=== PATIENT | female | born 2005 | race Caucasian/White ===

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

== ENCOUNTER 2023-06-11 13:03 | Emergency (ER) | payer MEDICAID, SELFPAY ==
[2023-06-11] VITALS (21 sets, daily range): BP systolic 98–116; BP diastolic 65–71; PULSE 94–113; RESP 18–25; TEMP 36.7–37.2; O2SAT 98–100
--- NOTE | 2023-06-11 13:00 | RT.EKG_ITS ---
APPROVED REPORT Exam: Resting ECG Reason for Exam: chest pain Patient Location: E HR:111 bpm ECG Measurements Heart Rate 111 AXIS LA 121 P 59 QRSd 82 QRS -29 QT 334 T 32 QTc 455 Conclusion Sinus tachycardia normal axis no significant change from prior
--- NOTE | 2023-06-11 14:03 | W.ED.GENAD ---
Discharge Plan Disposition Patient Disposition: Home Condition: Stable Discharge Details Clinical Impression: Shortness of breath Primary Care Provider: Romana Valdez ED Provider: Akilah Doty Home Meds and New Rx's Prescriptions: Continued sertraline 100 mg Tablet 100 mg PO DAILY hydroxyzine HCl 25 mg Tablet 75 mg PO TID PRN duloxetine 30 mg capsule,delayed release(DR/EC) 30 mg PO DAILY Patient Comments: TAKE 1 CAPSULE BY MOUTH ONCE DAILY, DO NOT CRUSH OR CHEW cholecalciferol (vitamin D3) 1,250 mcg (50,000 unit) capsule 50,000 unit PO ONCE Patient Comments: TAKE 1 CAPSULE BY MOUTH ONCE A WEEK WITH FOOD L norgest/e.estradiol-e.estrad [Ashlyna] 0.15 mg-30 mcg (84)/10 mcg (7) tablets,dose pack,3 month See Rx Instructions .ROUTE .COMPLEX Rx Instructions: take 1 tablet daily following the order on blister card(s) estradiol 1 mg tablet 1 mg PO DAILY Patient Comments: TAKE 1 TABLET BY MOUTH ONCE DAILY Discharge Instructions Instructions: Dyspnea (ED) Additional Instructions: Please use your albuterol inhaler every 2-4 hours 1 or 2 puffs with the spacer as directed. At this time no evidence of obvious large blood clot in your lungs no pneumonia. This is a preliminary result and a radiologist will also look at it if there is any changes we will call you. Follow up with primary care provider in 3-5 days. Return to ED sooner if any worsening or concerns. Increase oral fluids. Referrals: Romana Valdez [Primary Care Provider] - 1 week Samantha Zarate MD [ [facility] STAFF PHYSICIAN] - 5 days Discharge Data Discharge Date/Time-TO BE ENTERED AT DEPARTURE: 06/11/23 17:36 Medical Decision Making <TANA Draper - Last Filed: 06/12/23 15:48> 17-year-old female reporting shortness of breath and chest pain, D-dimer 559, discussed risk benefit of CT, patient would like to have CT performed, given tachycardia, shortness of breath and recent 3-week initiation of estrogen, will order CTA, patient will be signed out to Irish Doty pending CTA, lungs clear to auscultation, sinus tachycardia, EKG without acute abnormality, troponin negative and diagnostic labs do not show acute abnormality Patient is alert and oriented, cranial nerves II through XII intact, able to follow all basic neurological commands, lungs clear to auscultation, appears anxious No reproducible Chest wall pain, EKG per ED attending physician's documentation and my review does not show evidence of acute abnormality aside from sinus tachycardia CTA chest was ordered for further evaluation as D-dimer positive Remain on telemetry monitoring throughout this encounter without visible evidence of dysrhythmia negative Troponin and diagnostic labs do not show significant acute abnormality SJ: 1605: Care assumed from provider (TANA Draper) Please see their initial HPI, PE, and documentation. Discussed patient details and case and pending workup and disposition. Patient is hemodynamically stable, and alert and oriented. At the time of signout awaiting CTA of chest, COVID swab added onto labs. Patient is a 17-year-old female with a chief complaint of shortness of breath which is worsening for last 5 days and chest pain with associated vomiting. D-dimer slightly elevated. He does show some motion artifact however no large pulmonary embolism noted findings are noted below. Discussed CT results with patient and family verbalized understanding. We will give a spacer prior to patient being discharged. I will give her referral for the on-call PCP provider as patient has not been able to get a hold of her PCP. Discussed strict return instructions and home care. This text was generated using [employer] dictation system, please disregard any oddities of phrase or misspellings. <Akilah Doty, [employer] THER[employer]IST - Last Filed: 06/11/23 18:14> 17-year-old female reporting shortness of breath and chest pain, D-dimer 559, discussed risk benefit of CT, patient would like to have CT performed, given tachycardia, shortness of breath and recent 3-week initiation of estrogen, will order CTA, patient will be signed out to Irish Doty pending CTA, lungs clear to auscultation, sinus tachycardia, EKG without acute abnormality, troponin negative and diagnostic labs do not show acute abnormality SJ: 1605: Care assumed from provider (TANA Draper) Please see their initial HPI, PE, and documentation. Discussed patient details and case and pending workup and disposition. Patient is hemodynamically stable, and alert and oriented. At the time of signout awaiting CTA of chest, COVID swab added onto labs. Patient is a 17-year-old female with a chief complaint of shortness of breath which is worsening for last 5 days and chest pain with associated vomiting. D-dimer slightly elevated. He does show some motion artifact however no large pulmonary embolism noted findings are noted below. Discussed CT results with patient and family verbalized understanding. We will give a spacer prior to patient being discharged. I will give her referral for the on-call PCP provider as patient has not been able to get a hold of her PCP. Discussed strict return instructions and home care. This text was generated using [employer] system, please disregard any oddities of phrase or misspellings. Medical Records Medical records reviewed: Yes I reviewed the patient's medical records. Imaging Data Radiologic Study: Imaging: CT Scan Radiologist's impression: [facility] CT result: COMPARISON: CR XR CHEST 2V PA LATERAL 10/03/2022 20:14 FINDINGS: Limitations: Respiratory motion artifact. Pulmonary arteries: No large central pulmonary embolus involving the main pulmonary artery in the right and left pulmonary artery. Motion artifact degrades image quality of the peripheral vessels however there is no gross pulmonary embolus. Aorta: Unremarkable. No aortic aneurysm. No aortic dissection. Trachea: . Mild proximal tracheal malacia. Lungs: Low lung volumes. Pleural spaces: Unremarkable. No pneumothorax. No pleural effusion. Heart: Unremarkable. No cardiomegaly. No pericardial effusion. Lymph nodes: Unremarkable. No enlarged lymph nodes. Diaphragm: Hiatal hernia. Liver: Hepatic steatosis. Preliminary Radiology Report Stomach and bowel: Fluid distended stomach. Bones/joints: Unremarkable for age. No acute fracture. Soft tissues: Unremarkable. IMPRESSION: 1. No evidence for large pulmonary embolus. Limitations as discussed above. 2. Mild proximal tracheal malacia. 3. Hypoventilation. 4. Additional findings as discussed above. Thank you for allowing us to participate in the care of your patient. Dictated and Authenticated by: Cyn Washington MD Lab Data Lab results reviewed: Yes I reviewed the patient's lab results. Labs: Laboratory Tests Range/Units 06/11/23 06/11/23 13:57 16:03 WBC (4.4-10.8) 10^3/uL 10.98 H RBC (3.93-5.22) 10^6/uL 4.53 Hgb (11.2-15.7) g/dL 12.9 Hct (36.0-46.0) % 38.4 MCV (80-95) fL 85 MCH (27.0-33.0) pg 28.5 MCHC (32.0-36.0) % 33.6 RDW (11.7-14.6) % 13.1 Plt Count (130-400) 10^3/uL 377 MPV (8.0-11.0) fL 10.5 Immature Gran % 0.5 Neutrophils % 67.2 Lymphocytes % 23.7 Monocytes % 7.3 Eosinophils % 1.0 Basophils % 0.3 Nucleated RBC % (0.0-0.3) % 0.0 Absolute Neutrophils (1.2-6.7) 10^3/uL 7.38 H Absolute Lymphocytes (1.2-3.4) 10^3/uL 2.60 Absolute Monocytes (0.1-0.8) 10^3/uL 0.80 Absolute Eosinophils (0.0-0.7) 10^3/uL 0.11 Absolute Basophils (0.0-0.2) 10^3/uL 0.03 D-Dimer (<500) ng/mlFEU 559 H Sodium (136-145) mmol/L 138 Potassium (3.5-5.1) mmol/L 3.4 L Chloride (98-107) mmol/L 104 Carbon Dioxide (21.0-32.0) mmol/L 23.1 Anion Gap (3-11) mmol/L 10.9 BUN (7-18) mg/dL 8 Creatinine (0.55-1.02) mg/dL 0.8 Est GFR (CKD-EPI 2020) (mL/min/1.73m2) 108.78 Glucose (74-106) mg/dL 131 H Calcium (8.5-10.1) mg/dL 8.9 Magnesium (1.8-2.4) mg/dL 2.1 Total Bilirubin (0.2-1.0) mg/dL 0.1 L AST (15-37) U/L 22 ALT (14-59) U/L 22 Alkaline Phosphatase (46-116) U/L 71 Troponin I (<or=60) ng/L < 50 Total Protein (6.4-8.2) g/dL 7.6 Albumin (3.4-5.0) g/dL 3.4 COVID-19 Source Nasal/Nares SARS-CoV-2 (PCR) (Negative) Negative HPI <TANA Draper - Last Filed: 06/12/23 15:48> General Date/Time Provider Initiated Documentation: 06/11/23 13:12. HPI Narrative: This 17-year-old female presents with reports of chest pain and shortness of breath which started approximately 5 days ago. She had an episode of syncope which she thinks precipitated the event. She denies any history of hypertension or hyperlipidemia. There is no known family history of early cardiac disease. Patient does not smoke, drink, or use any illicit drugs. She denies any chance of . Patient has had some swelling in her lower extremities without pain. Denies any history of coagulopathy. Did just recently start on oral exogenous estrogen after being on Depo-Provera. Has had similar symptoms in the past approximately a year ago where she had full evaluation at [facility]. Related Data Home Medications Medication Instructions Recorded Confirmed hydroxyzine HCl 25 mg tablet 75 mg PO TID PRN 03/10/22 06/11/23 sertraline 100 mg tablet 100 mg PO DAILY 03/10/22 06/11/23 L norgest/E estradiol-E estrad See Rx Instructions PO .COMPLEX 06/11/23 06/11/23 0.15 mg-30 mcg (84)/10 mcg(7) tabs,3mos (Ashlyna) cholecalciferol (vitamin D3) 1,250 50,000 unit PO ONCE 06/11/23 06/11/23 mcg (50,000 unit) capsule duloxetine 30 mg capsule,delayed 30 mg PO DAILY 06/11/23 06/11/23 release estradiol 1 mg tablet 1 mg PO DAILY 06/11/23 06/11/23 Allergies Allergy/AdvReac Type Severity Reaction Status Date / Time No Known Allergies Allergy Unverified 06/11/23 14:14 General Stated Complaint: Chest Pain KARLY: 3 PFSH <TANA Draper - Last Filed: 06/12/23 15:48> All Active Problems (Updated 06/11/23 @ 15:48 by TANA Draper) Shortness of breath (Acute) Social History Smoking/Tobacco Use Status: Never Smoking risk assessment performed?: Yes Alcohol Intake: never Drug use: Never Substance use type: does not use Do you feel safe at home: Yes Do you feel safe in your relationship?: Yes Course <TANA Draper - Last Filed: 06/12/23 15:48> Vital Signs Vital signs: Vital Signs Temperature 36.7 C 06/11/23 13:08 Pulse 110 H 06/11/23 13:08 Respiratory Rate 20 06/11/23 13:08 Blood Pressure 116/71 06/11/23 13:08 Pulse Oximetry 98 06/11/23 13:08 Temperature 36.7 C 06/11/23 13:08 Temperature Source Temporal Artery Scan 06/11/23 13:08 Pulse 110 H 06/11/23 13:08 Respiratory Rate 20 06/11/23 13:08 Blood Pressure 116/71 06/11/23 13:08 Blood Pressure Position Sitting 06/11/23 13:08 Pulse Oximetry 98 06/11/23 13:08 Oxygen Delivery Method Room Air 06/11/23 13:08 Oxygen Flow Rate 0 06/11/23 13:08 Lab/Test Results Lab/Test Results: POC- Test(urine) Negative Sign Out <TANA Draper - Last Filed: 06/12/23 15:48> Sign Out Data: Sign Out Comment: pending cta Last updated by Elisabeth Lr PA at 06/11/23 15:43
[2023-06-11 14:09] LABS: Abs Immature Grans 0.05 10^3/uL (0.0-0.06); Absolute Basophil Count 0.03 10^3/uL (0.0-0.2); Absolute Eosinophil Count 0.11 10^3/uL (0.0-0.7); Basophils % 0.3; HCT 38.4 % (36.0-46.0); HGB 12.9 g/dL (11.2-15.7); Immature Grans % 0.5; Lymphocytes % 23.7; MCH 28.5 pg (27.0-33.0); MCHC 33.6 % (32.0-36.0); MCV 85 fL (80-95); MPV 10.5 fL (8.0-11.0); Monocytes % 7.3; Neutrophils % 67.2; Platelet Count 377 10^3/uL (130-400); RBC 4.53 10^6/uL (3.93-5.22); RDW 13.1 % (11.7-14.6); RDW-SD 40.8 fL; WBC 10.98 10^3/uL (4.4-10.8)
[2023-06-11 14:15] LABS: Absolute Neutrophil Count 7.38 10^3/uL (1.2-6.7)
[2023-06-11] MEDS: Lactated Ringers 1,000 ML 1000 ML IV (14:21)
[2023-06-11] MEDS: ACETAMINOPHEN 1,000 MG/100 ML BTL 400 MG IVPB (14:22)
[2023-06-11 14:33] LABS: ALT 22 U/L (14-59); AST 22 U/L (15-37); Albumin 3.4 g/dL (3.4-5.0); Alkaline Phosphatase 71 U/L (46-116); Anion Gap 10.9 mmol/L (3-11); BUN 8 mg/dL (7-18); Bilirubin, Total 0.1 mg/dL (0.2-1.0); CO2 23.1 mmol/L (21.0-32.0); CREATININE 0.8 mg/dL (0.55-1.02); Calcium 8.9 mg/dL (8.5-10.1); Chloride 104 mmol/L (98-107); Estimated GFR 108.78 (mL/min/1.73m2); Glucose 131 mg/dL (74-106); Magnesium 2.1 mg/dL (1.8-2.4); Potassium 3.4 mmol/L (3.5-5.1); Sodium 138 mmol/L (136-145); Total Protein 7.6 g/dL (6.4-8.2); Troponin I < 50 ng/L (<or=60)
[2023-06-11 14:43] LABS: D-Dimer 559 ng/mlFEU (<500)
--- NOTE | 2023-06-11 14:45 | DI.CT_ITS ---
Exam(s) CT CHEST PE CTA EXAM: CT CHEST PE CTA CLINICAL HISTORY: chest pain, shortness of breath, tachycardia. TECHNIQUE: Imaging Protocol: Axial CT angiography was performed with multi-slice acquisition and mu lti-planar reconstructions as well as axial, coronal and sagittal MIP reconstructions. CONTRAST MATERIAL: Intravenous: Omnipaque 350 Contrast volume:80 ml COMPARISON: No exams were available for comparison FINDINGS: Exam mildly limited by respiratory motion. Pulmonary Arteries: No evidence of filling defect to suggest pulmonary emboli. Tracheobronchial tree: Patent where visualized. Mediastinum and Janet: No dominant adenopathy or fluid collection. Pulmonary parenchyma: No consolidation or dominant measurable mass. Pleura: No effusion or pneumothorax. Heart: The heart is not dilated. No coronary artery calcifications are seen. Aorta: Thoracic aorta non-dilated. No aneurysm. No dissection. Upper abdomen: Unremarkable. Bones: Mild scoliosis. No evidence of fracture. Tubes, Catheters, and Lines: None IMPRESSION: No evidence of pulmonary embolism or other acute abnormality.. RADIATION DOSE DELIVERED: Total DLP DATA REPOSITORY: All CT scans at this facility are submitted to the National Radiology Data Registry (NRDR) Dose Index Registry (DIR) with the [employer] (ACR). RADIATION OPTIMIZATION: All CT scans at this facility use at least one of these dose optimization te chniques: automated exposure control; mA and/or kV adjustment per patient size (includes targeted exa ms where dose is matched to clinical indication); or iterative reconstruction.
[2023-06-11] MEDS: Omnipaque 350 MG/ML 100 ML BTL IJ (15:21)
[2023-06-11] MEDS: Normal Saline - Diluent 50 ML VIAL IJ (15:27)
[2023-06-11 16:08] LABS: Source Nasal/Nares
--- NOTE | 2023-06-11 16:21 | DI.VRAD_ITS ---
PROCEDURE INFORMATION: Exam: CTA Chest With Contrast Exam date and time: 06/11/2023 3:19 PM Age: 17 years old Clinical indication: Shortness of breath and other: Chest pain, SOB, tachy TECHNIQUE: Imaging protocol: Computed tomographic angiography of the chest with contrast. Exam focused on the arteries. 3D rendering (Not supervised by radiologist): MIP and/or 3D reconstructed images were created by the technologist. Contrast material: 350; Contrast volume: 100 ml; Contrast route: INTRAVENOUS (IV); COMPARISON: CR XR CHEST 2V PA LATERAL 10/03/2022 20:14 FINDINGS: Limitations: Respiratory motion artifact. Pulmonary arteries: No large central pulmonary embolus involving the main pulmonary artery in the right and left pulmonary artery. Motion artifact degrades image quality of the peripheral vessels however there is no gross pulmonary embolus. Aorta: Unremarkable. No aortic aneurysm. No aortic dissection. Trachea: . Mild proximal tracheal malacia. Lungs: Low lung volumes. Pleural spaces: Unremarkable. No pneumothorax. No pleural effusion. Heart: Unremarkable. No cardiomegaly. No pericardial effusion. Lymph nodes: Unremarkable. No enlarged lymph nodes. Diaphragm: Hiatal hernia. Liver: Hepatic steatosis. Stomach and bowel: Fluid distended stomach. Bones/joints: Unremarkable for age. No acute fracture. Soft tissues: Unremarkable. IMPRESSION: 1. No evidence for large pulmonary embolus. Limitations as discussed above. 2. Mild proximal tracheal malacia. 3. Hypoventilation. 4. Additional findings as discussed above. Dictated and Authenticated by: Cyn Washington MD. Ordering:MURALI Barber MD
[2023-06-11 16:37] LABS: COVID-19 PCR Negative (Negative)
[2023-06-11] MEDS: Inhaler, Assist Device 1 EACH MC (17:00)
== END 2023-06-11 17:36 | disposition home or self-care (01) ==
PROVIDERS: Physician Assistant; Emergency Provider Registered Nurse Emergency; PCP Nurse Practitioner Family
DX: R07.9 Chest pain, unspecified (principal); R06.02 Shortness of breath; R00.0 Tachycardia, unspecified; R79.89 Other specified abnormal findings of blood chemistry
CPT/HCPCS: 71275; 80053; 81025; 87635; 93005; 96361; 96374; 99285; 83735; 84484; 85025; 85379; 93010; J0131; J3490

== ENCOUNTER 2023-06-14 08:32 | Emergency (ER) | payer MEDICAID, SELFPAY ==
[2023-06-14 08:35] VITALS: BP 127/85; PULSE 100; RESP 22; TEMP 36.9; O2SAT 98
[2023-06-14 08:42] VITALS: BP 125/87; PULSE 100; RESP 20; TEMP 36.9; O2SAT 100
--- NOTE | 2023-06-14 08:54 | ED.GENADUL_ITS ---
Discharge Plan Disposition Patient Disposition: Home Condition: Good Discharge Details Clinical Impression: Pharyngitis Primary Care Provider: Romana Valdez ED Provider: Elias Magana Home Meds and New Rx's Prescriptions: New amoxicillin-pot clavulanate 875-125 mg tablet 1 tab PO BID 10 Days Qty: 20 0RF ondansetron 4 mg tablet,disintegrating 4 mg PO Q8H PRN (Reason: nausea and vomiting) Qty: 30 0RF Continued sertraline 100 mg Tablet 100 mg PO DAILY hydroxyzine HCl 25 mg Tablet 75 mg PO TID PRN duloxetine 30 mg capsule,delayed release(DR/EC) 30 mg PO DAILY Patient Comments: TAKE 1 CAPSULE BY MOUTH ONCE DAILY, DO NOT CRUSH OR CHEW cholecalciferol (vitamin D3) 1,250 mcg (50,000 unit) capsule 50,000 unit PO ONCE Patient Comments: TAKE 1 CAPSULE BY MOUTH ONCE A WEEK WITH FOOD L norgest/e.estradiol-e.estrad [Ashlyna] 0.15 mg-30 mcg (84)/10 mcg (7) tablets,dose pack,3 month See Rx Instructions .ROUTE .COMPLEX Rx Instructions: take 1 tablet daily following the order on blister card(s) estradiol 1 mg tablet 1 mg PO DAILY Patient Comments: TAKE 1 TABLET BY MOUTH ONCE DAILY Discharge Instructions Instructions: Amoxicillin/Clavulanate Potassium (By mouth), Ondansetron (By mouth), Pharyngitis (ED) Additional Instructions: You were seen in the emergency department for your sore throat and continued shortness of breath. This is possibly a viral syndrome and we did send out a respiratory panel swab that should be back in a number of days, please check with the hospital or your primary care provider for results of this are on your MyChart. Otherwise you have some right tonsillar swelling and we can treat with antibiotics for an empiric pharyngitis. We provided you with Tylenol and an NSAID today as well as a one-time dose of dexamethasone a steroid that should help with any inflammation. You do not have to use your albuterol inhaler every 2 hours, you can use this as needed for shortness of breath. I have provided yo u with PO dissolving tablets of ondansetron which will help with nausea- take this as needed 3 times per day 20-30 minutes before meals. Please use therapeutic dosing of Tylenol (acetamenophen) & Advil (ibuprofen) in an alternating fashion as follows: Take 1000mg of Tylenol every 6 hours without missing doses- that is 4 times per day. [place] in between the Tylenol dosings, take 400-600mg of Advil also on a 6 hour schedule, that is also 4 times per day. The daily maximum dosing of Tylenol is 4000mg, and the daily maximum dosing of Advil is 2400mg. This is safe to do for weeks. Please note that some common cold medications & prescription pain medications may contain acetamenophen and you need to read OTC drug labels and factor that in to maximum daily dosings. Use tea with honey for symptomatic sore throat, perform salt water gargles to ease irritation. Apply gentle heat to your area of rib pain as this is likely musculoskeletal in nature need to get the muscle to relax. The Tylenol and ibuprofen will help with this as well. Please return to the emergency department for any significant increase in shortness of breath, any increasing fever despite adequate dosing of Tylenol and ibuprofen. Return for any intractable nausea or vomiting. Referrals: Romana Valdez [Primary Care Provider] - Discharge Data Discharge Date/Time-TO BE ENTERED AT DEPARTURE: 06/14/23 10:06 Medical Decision Making <TANA Barry - Last Filed: 06/14/23 10:33> This dictation utilizes [id number] dictation software and may contain unedited grammatical errors. 17 y/o F presents to ED today with a chief complaint of shortness of breath, chills, sore throat, and pleuritic CP with asthma, recent negative CTA, negative Covid-19 at a visit 3 days ago to this ED. Onset and characteristics include almost a weeks worth of sore throat symptoms without trismus/hoars eness/drooling, shortness of breath in the setting of chronic asthma, and chest discomfort. Patient has relevant history of OCP use, asthma. Family and social history: noncontributory. Patient and mother had confusion over tracheal malacia vRAD read at last visit, normal radiology overread. Pertinent exam findings / vital signs include lungs CTA, mild R tonsillar swelling without trismus/vocal changes, TTP L lower sternocostal junction, nontoxic vitals- HR upper limit of normal at 100- but patient has been using albuterol q2hr for days, no acute distress. HR 94, patient comfortably playing o n phone at discharge, observed on monitor. Differential / pathologies of concern include pharyngitis, tonsillitis, viral syndrome, mild asthma exacerbation, unlikely peritonsillar abscess. Diagnostic studies of: -Respiratory Panel PCR (send-out), Rapid Strep swab. -Rapid Strep negative, Cx pending @ d/c. Interventions of: -PO Tylenol & Toradol, PO Dexamethasone one-time dose. ED Course: Stable vitals throughout visit, patient and mother were comfortable with discharge after plan had been discussed with, no decompensation. Findings not consistent with BRIGHT CUTTER/epiglottitis, PNA/PE (ruled-out last visit), hypoxemic respiratory failure, patient more than likely has a viral syndrome or pharyngitis with subjective shortness of breath. Disposition of Pharyngitis. Assessment/Plan: 17-year-old female presents with almost a weeks onset of sore throat with mild shortness of breath in the setting of chronic asthma. She has pleuritic chest pain suspicious for costochondritis as well as a sore throat as her most focal symptom. She received a negative CTA and negative COVID test at last visit with her recent exposure to estrogen OCPs. Spent significant time counseling the patient on normal over read of her study and not tracheal malacia of a mild degree is not tracheal collapse, I spent considerable time talking about therapeutic Tylenol and ibuprofen use and to follow with primary care visit. Plan to treat her pharyngitis empirically with antibiotics- Augmentin, sent to [facility] in [place] for mild right tonsillar swelling without gross suspicion for peritonsillar abscess, her respiratory panel PCR send out test is pending at this time, she may discontinue antibiotics if this study comes back positive for a common viral illness. Patient was seen in conjunction with EM Attending Dr. Arana. Patient verbalized understanding of the plan and return to ED criteria and engaged in shared decision making. Medical Records Medical records reviewed: Yes I reviewed the patient's medical records. Lab Data Labs: 06/14/23 09:05 Tonsil - Not Specified Group A Streptococcus Culture - Pending <Raj Arana MD - Last Filed: 06/14/23 13:54> This dictation utilizes [id number] dictation software and may contain unedited grammatical errors. 17 y/o F presents to ED today with a chief complaint of shortness of breath, chills, sore throat, and pleuritic CP with asthma, recent negative CTA, negative Covid-19 at a visit 3 days ago to this ED. Onset and characteristics include almost a weeks worth of sore throat symptoms without trismus/hoarseness/drooling, shortness of breath in the setting of chronic asthma, and chest discomfort. Patient has relevant history of OCP use, asthma. Family and social history: noncontributory. Patient and mother had confusion over tracheal malacia vRAD read at last visit, normal radiology overread. Pertinent exam findings / vital signs include lungs CTA, mild R tonsillar swelling without trismus/vocal changes, TTP L lower sternocostal junction, nontoxic vitals- HR upper limit of normal at 100- but patient has been using albuterol q2hr for days, no acute distress. HR 94, patient comfortably playing on phone at discharge, observed on monitor. Differential / pathologies of concern include pharyngitis, tonsillitis, viral syndrome, mild asthma exacerbation, unlikely peritonsillar abscess. Diagnostic studies of: -Respiratory Panel PCR (send-out), Rapid Strep swab. -Rapid Strep negative, Cx pending @ d/c. Interventions of: -PO Tylenol & Toradol, PO Dexamethasone one-time dose. ED Course: Stable vitals throughout visit, patient and mother were comfortable with discharge after plan had been discussed with, no decompensation. Findings not consistent with BRIGHT CUTTER/epiglottitis, PNA/PE (ruled-out last visit), hypoxemic respiratory failure, patient more than likely has a viral syndrome or pharyngitis with subjective shortness of breath. Disposition of Pharyngitis. Assessment/Plan: 17-year-old female presents with almost a weeks onset of sore throat with mild shortness of breath in the setting of chronic asthma. She has pleuritic chest pain suspicious for costochondritis as well as a sore throat as her most focal symptom. She received a negative CTA and negative COVID test at last visit with her recent exposure to estrogen OCPs. Spent significant time counseling the patient on normal over read of her study and not tracheal malacia of a mild degree is not tracheal collapse, I spent considerable time talking about therapeutic Tylenol and ibuprofen use and to follow with primary care visit. Plan to treat her pharyngitis empirically with antibiotics- Augmentin, sent to [facility] in [place] for mild right tonsillar swelling without gross suspicion for peritonsillar abscess, her respiratory panel PCR send out test is pending at this time, she may discontinue antibiotics if this study comes back positive for a common viral illness. Patient was seen in conjunction with EM Attending Dr. Arana. Patient verbalized understanding of the plan and return to ED criteria and engaged in shared decision making. 1:54 PM I saw this patient in conjunction with the advanced practitioner. Please see my separate note for details. Dr. Raj Arana MD HPI <TANA Barry - Last Filed: 06/14/23 10:33> General Date/Time Provider Initiated Documentation: 06/14/23 08:34 . HPI Narrative: 17 year-old female presents to ED today by POV/ambulating with her mother with a chief complaint of continued shortness of breath after recent visit 06/11 with negative CTA with onset for the past week almost. Quality described as shortness of breath, having to breathe through her mouth, sternal sharp pleuritic chest pain, sore throat, no radiation to syncope, dizziness, diaphoresis, endorses chills/fever, endorses some nausea/vomiting. Severity is described as 6-7/10. Palliating factors include using her at-home albuterol inhaler every 2-4 hours without relief, does have chronic asthma. Provoking factors include coughing. Events leading up to the incident/Associated Symptoms: Patient was negative for Covid-19 at last visit, and had recent initiation of estrogen OCPs. Patient and mother were concerned with a vRAD read they were counseled on that showed mild tracheal malacia, which was read as normal on overread- they stated they were told she had a collapsed trachea. Patient not anticoagulated. Related Data Home Medications Medication Instructions Recorded Confirmed hydroxyzine HCl 25 mg tablet 75 mg PO TID PRN 03/10/22 06/14/23 sertraline 100 mg tablet 100 mg PO DAILY 03/10/22 06/14/23 L norgest/E estradiol-E estrad See Rx Instructions PO .COMPLEX 06/11/23 06/14/23 0.15 mg-30 mcg (84)/10 mcg(7) tabs,3mos (Ashlyna) cholecalciferol (vitamin D3) 1,250 50,000 unit PO ONCE 06/11/23 06/14/23 mcg (50,000 unit) capsule duloxetine 30 mg capsule,delayed 30 mg PO DAILY 06/11/23 06/14/23 release estradiol 1 mg tablet 1 mg PO DAILY 06/11/23 06/14/23 amoxicillin 875 mg-potassium 1 tab PO BID pharyngitis 10 days 06/14/23 clavulanate 125 mg tablet #20 tabs ondansetron 4 mg disintegrating 4 mg PO Q8H PRN nausea and 06/14/23 tablet vomiting #30 tabs Previous Rx's Medication Instructions Recorded amoxicillin 875 mg-potassium 1 tab PO BID pharyngitis 10 days 06/14/23 clavulanate 125 mg tablet #20 tabs ondansetron 4 mg disintegrating 4 mg PO Q8H PRN nausea and 06/14/23 tablet vomiting #30 tabs Allergies Allergy/AdvReac Type Severity Reaction Status Date / Time No Known Allergies Allergy Unverified 06/11/23 14:14 General Stated Complaint: GenMedical KARLY: 3 <Raj Arana MD - Last Filed: 06/14/23 13:54> HPI Narrative: 17 year-old female presents to ED today by POV/ambulating with her mother with a chief complaint of continued shortness of breath after recent visit 06/11 with negative CTA with onset for the past week almost. Quality described as shortness of breath, having to breathe through her mouth, sternal sharp pleuritic chest pain, sore throat, no radiation to syncope, dizziness, diaphoresis, endorses chills/fever, endorses some nausea/vomiting. Severity is described as 6-7/10. Palliating factors include using her at-home albuterol inhaler every 2-4 hours without relief, does have chronic asthma. Provoking factors include coughing. Events leading up to the incident/Associated Symptoms: Patient was negative for Covid-19 at last visit, and had recent initiation of estrogen OCPs. Patient and mother were concerned with a vRAD read they were counseled on that showed mild tracheal malacia, which was read as normal on overread- they stated they were told she had a collapsed trachea. I called in prescriptions for this patient to the [facility] pharmacy to review. Review of Systems <TANA Barry - Last Filed: 06/14/23 10:33> All systems reviewed & are unremarkable except as noted in HPI and below PFSH <TANA Barry - Last Filed: 06/14/23 10:33> All Active Problems (Updated 06/14/23 @ 09:21 by TANA Barry) Pharyngitis (Acute) Shortness of breath (Acute) Social History Smoking/Tobacco Use Status: Never Smoking risk assessment performed?: Yes Alcohol Intake: never Drug use: Never Substance use type: does not use Housing: house Do you feel safe at home: Yes Do you feel safe in your relationship?: Yes Exam <TANA Barry - Last Filed: 06/14/23 10:33> Narrative Exam Narrative: GENERAL APPEARANCE: Well-nourished, non-toxic, awake and alert, atraumatic, no acute distress. SKIN: Warm, pink, dry, intact, without rashes/lesions/ulcerations. HEAD: Normocephalic, atraumatic, normal hair distribution for gender/age. EYES: Pupils PERRLA, EOMs intact without nystagmus, normal conjunctiva, no exudates on lids/lashes. ENT: Nares patent, no circumoral cyanosis, no facial swelling, posterior oropharynx mildly erythematous without exudate, no trismus, uvula midline, R tonsil mildly swollen. NECK: Supple, trachea midline, painless cervical ROM, R tonsillar lymhpadenopathy. LUNGS/CHEST: Lungs CTA bilaterally- no rhonchi/rales/wheezes, non-labored respirations, normal A/P diameter, symmetrical expansion, no chest wall deformity, L lower sternal border pleuritic TTP without crepitus HEART (CV/PV): Regular rate and rhythm without murmur, no peripheral edema, no JVD. ABDOMEN: Soft, non-distended, no guarding, no tenderness. MSK: Normal ROM, no swelling/deformity to bilateral UEs or LEs, moving all extremities without weakness, no cyanosis, spine midline without tenderness, normal curvature. NEURO: Mental Status AAOx4 - alert to person, place, time, events No facial droop, no forehead involvement. Motor: No focal weakness - strength 5/5 in bilateral UEs and LEs, proximal and distal, symmetric. Sensory: sensation intact to light touch globally. Gait normal: patient ambulated without ataxia into ED room. PSYCH: euthymic, cooperative, pleasant, appropriate speech Course <TANA Barry - Last Filed: 06/14/23 10:33> Vital Signs Vital signs: Vital Signs Temperature 36.9 C 06/14/23 08:35 Pulse 100 H 06/14/23 08:35 Respiratory Rate 22 06/14/23 08:35 Blood Pressure 127/85 06/14/23 08:35 Pulse Oximetry 98 06/14/23 08:35 Temperature 36.9 C 06/14/23 08:42 Temperature Source Tympanic 06/14/23 08:42 Pulse 100 H 06/14/23 08:42 Respiratory Rate 20 06/14/23 08:42 Respiratory Effort Normal, Non-Labored 06/14/23 08:42 Respiratory Depth Normal 06/14/23 08:42 Respiratory Pattern Normal 06/14/23 08:42 Blood Pressure 125/87 06/14/23 08:42 Blood Pressure Position Supine 06/14/23 08:35 Pulse Oximetry 100 06/14/23 08:42 Oxygen Delivery Method Room Air 06/14/23 08:42 Oxygen Flow Rate 0 06/14/23 08:35
--- NOTE | 2023-06-14 09:03 | W.EDPROG ---
Date of service: 06/14/23 Time of Service: 09:03 Medical Decision Making I saw this patient in conjunction with her advanced practitioner. Please see his note for complete details. In brief this is a 17-year-old female with a history of reactive airway disease seen 3 days ago in the emergency department now with subjective fevers over the past several days with worsening shortness of breath. Concerning her reactive airway disease she has never been hospitalized nor intubated. She is quite well-appearing. She is not hypoxic nor febrile in the ED. She is handling her secretions. She has no prolonged expiratory phase. She has no stridor. She had no pneumonia on CT 3 days ago. She has good range of motion in her neck so my suspicion for retropharyngeal abscess is low. She received her immunizations during childhood so my suspicion for bacterial tracheitis is low. She is nontoxic-appearing so doubt epiglottitis. She does have mild right-sided tonsillar erythema but no muffled voice and no significant swelling so my suspicion is low for peritonsillar abscess. She certainly may have an early peritonsillar abscess so we will treat empirically with antibiotics. We will swab for strep pharyngitis. We will also treat with single oral dose of dexamethasone given pharyngitis. Patient works as an ASS[employer] and does not need a work note today. Patient has been tachycardic in the past. No dyspnea primary care follow-up. Discharge Plan Disposition Patient Disposition: Home Condition: Good Discharge Details Clinical Impression: Pharyngitis Primary Care Provider: Romana Valdez ED Provider: Elias Magana Home Meds and New Rx's Prescriptions: New amoxicillin-pot clavulanate 875-125 mg tablet 1 tab PO BID 10 Days Qty: 20 0RF ondansetron 4 mg tablet,disintegrating 4 mg PO Q8H PRN (Reason: nausea and vomiting) Qty: 30 0RF Continued sertraline 100 mg Tablet 100 mg PO DAILY hydroxyzine HCl 25 mg Tablet 75 mg PO TID PRN duloxetine 30 mg capsule,delayed release(DR/EC) 30 mg PO DAILY Patient Comments: TAKE 1 CAPSULE BY MOUTH ONCE DAILY, DO NOT CRUSH OR CHEW cholecalciferol (vitamin D3) 1,250 mcg (50,000 unit) capsule 50,000 unit PO ONCE Patient Comments: TAKE 1 CAPSULE BY MOUTH ONCE A WEEK WITH FOOD L norgest/e.estradiol-e.estrad [Ashlyna] 0.15 mg-30 mcg (84)/10 mcg (7) tablets,dose pack,3 month See Rx Instructions .ROUTE .COMPLEX Rx Instructions: take 1 tablet daily following the order on blister card(s) estradiol 1 mg tablet 1 mg PO DAILY Patient Comments: TAKE 1 TABLET BY MOUTH ONCE DAILY Discharge Instructions Instructions: Amoxicillin/Clavulanate Potassium (By mouth), Ondansetron (By mouth), Pharyngitis (ED) Additional Instructions: You were seen in the emergency department for your sore throat and continued shortness of breath. This is possibly a viral syndrome and we did send out a respiratory panel swab that should be back in a number of days, please check with the hospital or your primary care provider for results of this are on your MyChart. Otherwise you have some right tonsillar swelling and we can treat with antibiotics for an empiric pharyngitis. We provided you with Tylenol and an NSAID today as well as a one-time dose of dexamethasone a steroid that should help with any inflammation. You do not have to use your albuterol inhaler every 2 hours, you can use this as needed for shortness of breath. I have provided you with PO dissolving tablets of ondansetron which will help with nausea- take this as needed 3 times per day 20-30 minutes before meals. Please use therapeutic dosing of Tylenol (acetamenophen) & Advil (ibuprofen) in an alternating fashion as follows: Take 1000mg of Tylenol every 6 hours without missing doses- that is 4 times per day. [place] in between the Tylenol dosings, take 400-600mg of Advil also on a 6 hour schedule, that is also 4 times per day. The daily maximum dosing of Tylenol is 4000mg, and the daily maximum dosing of Advil is 2400mg. This is safe to do for weeks. Please note that some common cold medications & prescription pain medications may contain acetamenophen and you need to read OTC drug labels and factor that in to maximum daily dosings. Use tea with honey for symptomatic sore throat, perform salt water gargles to ease irritation. Apply gentle heat to your area of rib pain as this is likely musculoskeletal in nature need to get the muscle to relax. The Tylenol and ibuprofen will help with this as well. Please return to the emergency department for any significant increase in shortness of breath, any increasing fever despite adequate dosing of Tylenol and ibuprofen. Return for any intractable nausea or vomiting. Referrals: Romana Valdez [Primary Care Provider] -
[2023-06-14] MEDS: Acetaminophen 500 MG TAB 1000 MG PO (09:05)
[2023-06-14] MEDS: Ketorolac 10 MG TAB PO (09:05)
[2023-06-14] MEDS: Dexamethasone 4 MG TAB 6 MG PO (09:12)
[2023-06-14 22:52] LABS: Adenovirus DNA Result Negative (Negative); Metapneumovirus RNA Result Negative (Negative); Parainfluenza Type1 RNA Result Negative (Negative); Parainfluenza Type2 RNA Result Negative (Negative); Parainfluenza Type3 RNA Result Negative (Negative); Parainfluenza Type4 RNA Result Negative (Negative); Rhinovirus RNA Result Negative (Negative)
== END 2023-06-14 10:06 | disposition home or self-care (01) ==
PROVIDERS: Emergency Provider Physician Assistant; PCP Nurse Practitioner Family
DX: J02.9 Acute pharyngitis, unspecified (principal); R06.02 Shortness of breath
CPT/HCPCS: 00123; 87632; 87880; 99283; 87081; J8540

== ENCOUNTER 2023-09-20 10:43 | Emergency (ER) | payer MEDICAID, SELFPAY ==
[2023-09-20 10:49] VITALS: BP 131/77; PULSE 106; RESP 18; TEMP 36.7; O2SAT 98
--- NOTE | 2023-09-20 11:13 | W.ED.GENAD ---
HPI General Date/Time Provider Initiated Documentation: 09/20/23 10:45. HPI Narrative: 18-year-old female history of migraines presents with migraine-like headache over the last several weeks was affecting her vision she was able to see a neuro-linux unix engineer they cleared her for close follow-up, patient has been on a triptan intermittently, scheduled for MRI and possible outpatient lumbar puncture in the coming weeks to months. Endorses persistent pressure-like headache gradual in onset associate with mild nausea, nosebleed and ear bleed 2 days ago now resolved. No fevers chills vomiting or other systemic signs of illness. Does endorse neck and back discomfort atraumatic in nature Related Data Home Medications Medication Instructions Recorded Confirmed hydroxyzine HCl 25 mg tablet 75 mg PO TID PRN 03/10/22 09/20/23 L norgest/E estradiol-E estrad See Rx Instructions PO .COMPLEX 06/11/23 09/20/23 0.15 mg-30 mcg (84)/10 mcg(7) tabs,3mos (Ashlyna) cholecalciferol (vitamin D3) 1,250 50,000 unit PO ONCE 06/11/23 09/20/23 mcg (50,000 unit) capsule duloxetine 30 mg capsule,delayed 30 mg PO DAILY 06/11/23 09/20/23 release estradiol 1 mg tablet 1 mg PO DAILY 06/11/23 09/20/23 albuterol sulfate 90 mcg/actuation 2 puff inhalation Q4H PRN 09/20/23 09/20/23 aerosol inhaler (Ventolin HFA) magnesium glycinate 100 mg tablet 180 mg PO DAILY 09/20/23 09/20/23 (Mag Glycinate) metoclopramide HCl 10 mg tablet 10 mg PO DAILY PRN headache #3 tabs 09/20/23 (Reglan) sumatriptan succinate 25 mg tablet 25 mg PO ONCE PRN 09/20/23 09/20/23 Previous Rx's Medication Instructions Recorded metoclopramide HCl 10 mg tablet 10 mg PO DAILY PRN headache #3 tabs 09/20/23 (Reglan) Allergies Allergy/AdvReac Type Severity Reaction Status Date / Time No Known Allergies Allergy Unverified 09/20/23 10:45 General Stated Complaint: Nk/Back Pain KARLY: 3 Review of Systems Narrative: Review of Systems Constitutional: negative Eyes: negative ENT: Nosebleed, ear bleed Cardiovascular: negative Respiratory: negative Gastrointestinal: negative : negative Musculoskeletal: Back pain neck pain Skin: negative Neurologic: Headache Psych: negative Exam Narrative Exam Narrative: Physical Examination General: alert, awake, cooperative, resting comfortably, no acute distress HEENT: normocephalic, atraumatic; PERRL, EOM intact, conjunctiva normal; no nasal discharge; moist mucous membranes, oral and pharyngeal mucosa normal, tolerating secretions; TMs clear bilaterally, nares normal without epistaxis Neck: supple, trachea midline; full ROM; no meningeal Chest: normal to inspection Respiratory: normal respiratory effort, speaking in full sentences, clear to auscultation, no wheezing, rales or rhonchi Cardiac: regular rate, regular rhythm, S1S2 intact, no murmurs rubs or gallops GI: abdomen soft, non-tender, non-distended; no palpable mass or hepatosplenomegaly Skin: no lesions, rashes or trauma appreciated Neuro: AAOx3, normal speech, moving all extremities; cranial nerves intact, normal speech, 5-5 strength upper and lower extremities, ambulatory without assistance no ataxia Psych: Appropriate mood and affect Course Vital Signs Vital signs: Vital Signs Temperature 36.7 C 09/20/23 10:49 Pulse 106 H 09/20/23 10:49 Respiratory Rate 18 09/20/23 10:49 Blood Pressure 131/77 09/20/23 10:49 Pulse Oximetry 98 09/20/23 10:49 Temperature 36.7 C 09/20/23 10:49 Temperature Source Oral 09/20/23 10:49 Pulse 106 H 09/20/23 10:49 Respiratory Rate 18 09/20/23 10:49 Blood Pressure 131/77 09/20/23 10:49 Pulse Oximetry 98 09/20/23 10:49 Oxygen Delivery Method Room Air 09/20/23 10:49 Oxygen Flow Rate 0 09/20/23 10:49 Pain Level 7 09/20/23 10:49 Medical Decision Making 18-year-old female history of migraines presents with persistent generalized headache over the last several weeks, evaluated by neuro-ophthalmology given visual changes last month was cleared for outpatient follow-up and is scheduled for MRI and possible lumbar puncture, afebrile nontoxic nonmeningeal alert oriented interactive nonfocal on examination, patient has been on a triptan intermittently, endorse that she has been missing work/her work has been affected by these headaches. No recent falls no trauma. Resolved epistaxis and ear bleeding, no evidence of current or subacute bleeding, TMs clear nares clear, full range of motion of neck; high clinical suspicion for migraine versus atypical migraine versus tension headache versus lower suspicion for cluster type headache versus muscle strain. No evidence of meningitis or encephalitis. Must also consider idiopathic intracranial hypertension given patient's age patient's body habitus and persistent migraine-like symptoms. Given nontoxic, neurologically stable patient at this time will not perform LP as patient has scheduled follow-up for this procedure. Trial of Reglan, dexamethasone Lidoderm patch close reassessment of symptoms. 13: 08 patient feeling much better. Neurologically intact nonmeningeal. Patient to follow-up with her neuro-linux unix engineer. Home care instructions and return precautions given. Quality:SDOH Health Related Social Needs: No Data to Display PFSH All Active Problems (Updated 09/20/23 @ 13:10 by Ethan Camacho MD) Headache (Acute) Social History Smoking/Tobacco Use Status: Never Smoking risk assessment performed?: Yes Alcohol Intake: never Drug use: Never Substance use type: does not use Housing: house Do you feel safe at home: Yes Do you feel safe in your relationship?: Yes Discharge Plan Disposition Patient Disposition: Home Condition: Improving Discharge Details Clinical Impression: Headache Primary Care Provider: Romana Valdez ED Provider: Ethan Camacho Home Meds and New Rx's Prescriptions: New metoclopramide HCl [Reglan] 10 mg tablet 10 mg PO DAILY PRN (Reason: headache) Qty: 3 0RF Rx Instructions: administer 30 minutes before meals No Action hydroxyzine HCl 25 mg Tablet 75 mg PO TID PRN duloxetine 30 mg capsule,delayed release(DR/EC) 30 mg PO DAILY Patient Comments: TAKE 1 CAPSULE BY MOUTH ONCE DAILY, DO NOT CRUSH OR CHEW cholecalciferol (vitamin D3) 1,250 mcg (50,000 unit) capsule 50,000 unit PO ONCE Patient Comments: TAKE 1 CAPSULE BY MOUTH ONCE A WEEK WITH FOOD L norgest/e.estradiol-e.estrad [Ashlyna] 0.15 mg-30 mcg (84)/10 mcg (7) tablets,dose pack,3 month See Rx Instructions .ROUTE .COMPLEX Rx Instructions: take 1 tablet daily following the order on blister card(s) estradiol 1 mg tablet 1 mg PO DAILY Patient Comments: TAKE 1 TABLET BY MOUTH ONCE DAILY sumatriptan succinate 25 mg tablet 25 mg PO ONCE PRN Patient Comments: TAKE 1 TABLET BY MOUTH NEEDED FOR MIGRAINE INITIAL DOSE 25MG, 50MG, 100MG (TAKE WITH FLUIDS) MAY REPEAT DOSE AFTER 2 HOURS MAX DAILY DOSE 200MG PER DAY albuterol sulfate [Ventolin HFA] 90 mcg/actuation HFA aerosol inhaler 2 puff INHALATION Q4H PRN Patient Comments: INHALE 2 PUFFS BY MOUTH EVERY 4 HOURS NEEDED FOR WHEEZING Mag Glycinate 100 mg tablet 180 mg PO DAILY Discharge Instructions Instructions: General Headache (ED) Additional Instructions: Please follow-up with your neuro-linux unix engineer as scheduled. Return to the emergency department for any worsening symptoms.
[2023-09-20] MEDS: Lidocaine 5% Patch 1 PATCH TP (11:19)
[2023-09-20] MEDS: Dexamethasone 10 MG/ML VIAL PO (11:19)
[2023-09-20] MEDS: Metoclopramide 10 MG/2 ML VIAL IM (11:21)
== END 2023-09-20 13:16 | disposition home or self-care (01) ==
PROVIDERS: Emergency Provider Emergency Medicine; PCP Nurse Practitioner Family
DX: R51.9 Headache, unspecified (principal)
CPT/HCPCS: 96372; 99283; J1100; J2765

== ENCOUNTER 2024-04-19 16:02 | Emergency (ER) | payer MEDICAID, SELFPAY ==
[2024-04-19 16:07] VITALS: BP 110/74; PULSE 88; RESP 15; TEMP 36.7; O2SAT 98
--- NOTE | 2024-04-19 16:13 | W.ED.GENAD ---
Discharge Plan Discharge Details Chief Complaint: Orthopedic Primary Care Provider: Romana Valdez ED Provider: Elias Magana Home Meds and New Rx's Prescriptions: No Action hydroxyzine HCl 25 mg Tablet 75 mg PO TID PRN duloxetine 30 mg capsule,delayed release(DR/EC) 30 mg PO DAILY Patient Comments: TAKE 1 CAPSULE BY MOUTH ONCE DAILY, DO NOT CRUSH OR CHEW cholecalciferol (vitamin D3) 1,250 mcg (50,000 unit) capsule 50,000 unit PO ONCE Patient Comments: TAKE 1 CAPSULE BY MOUTH ONCE A WEEK WITH FOOD L norgest/e.estradiol-e.estrad [Ashlyna] 0.15 mg-30 mcg (84)/10 mcg (7) tablets,dose pack,3 month See Rx Instructions .ROUTE .COMPLEX Rx Instructions: take 1 tablet daily following the order on blister card(s) estradiol 1 mg tablet 1 mg PO DAILY Patient Comments: TAKE 1 TABLET BY MOUTH ONCE DAILY sumatriptan succinate 25 mg tablet 25 mg PO ONCE PRN Patient Comments: TAKE 1 TABLET BY MOUTH NEEDED FOR MIGRAINE INITIAL DOSE 25MG, 50MG, 100MG (TAKE WITH FLUIDS) MAY REPEAT DOSE AFTER 2 HOURS MAX DAILY DOSE 200MG PER DAY albuterol sulfate [Ventolin HFA] 90 mcg/actuation HFA aerosol inhaler 2 puff INHALATION Q4H PRN Patient Comments: INHALE 2 PUFFS BY MOUTH EVERY 4 HOURS NEEDED FOR WHEEZING Mag Glycinate 100 mg tablet 180 mg PO DAILY metoclopramide HCl [Reglan] 10 mg tablet 10 mg PO DAILY PRN (Reason: headache) Qty: 3 0RF Rx Instructions: administer 30 minutes before meals HPI General Date/Time Provider Initiated Documentation: 04/19/24 16:12. HPI Narrative: [ ] year-old [ ] presents to ED today by [ ] with a chief complaint of [ ] with onset [ ]. Quality described as [ ], [ ] radiation to [ ]. Severity is described as [ ]/10. Palliating factors include [ ]. Provoking factors include [ ]. Events leading up to the incident/Associated Symptoms: [ ]. Patient [ ] anticoagulated. Related Data Home Medications ?Medication ?Instructions ?Recorded ?Confirmed hydroxyzine HCl 25 mg tablet 75 mg PO TID PRN 03/10/22 09/20/23 L norgest/E estradiol-E estrad See Rx Instructions PO .COMPLEX 10/28/23 02/06/24 0.15 mg-30 mcg (84)/10 mcg(7) tabs,3mos (Ashlyna) cholecalciferol (vitamin D3) 1,250 50,000 unit PO ONCE 06/11/23 09/20/23 mcg (50,000 unit) capsule duloxetine 30 mg capsule,delayed 30 mg PO DAILY 06/11/23 09/20/23 release estradiol 1 mg tablet 1 mg PO DAILY 06/11/23 09/20/23 albuterol sulfate 90 mcg/actuation 2 puff inhalation Q4H PRN 09/20/23 09/20/23 aerosol inhaler (Ventolin HFA) magnesium glycinate 100 mg (as 180 mg PO DAILY 09/20/23 09/20/23 glycinate) tablet (Mag Glycinate) metoclopramide HCl 10 mg tablet 10 mg PO DAILY PRN headache #3 tabs 09/20/23 (Reglan) sumatriptan succinate 25 mg tablet 25 mg PO ONCE PRN 09/20/23 09/20/23 Previous Rx's ?Medication ?Instructions ?Recorded metoclopramide HCl 10 mg tablet 10 mg PO DAILY PRN headache #3 tabs 09/20/23 (Reglan) Allergies Allergy/AdvReac Type Severity Reaction Status Date / Time No Known Allergies Allergy Unverified 09/20/23 10:45 General Stated Complaint: Orthopedic KARLY: 4 Review of Systems All systems reviewed & are unremarkable except as noted in HPI and below Exam Narrative Exam Narrative: GENERAL APPEARANCE: Well-nourished, non-toxic, awake and alert, atraumatic, no acute distress. SKIN: Warm, pink, dry, intact, without rashes/lesions/ulcerations. HEAD: Normocephalic, atraumatic, normal hair distribution for gender/age. EYES: Normal conjunctiva, no exudates on lids/lashes. ENT: Nares patent, no circumoral cyanosis, no facial swelling NECK: Supple, trachea midline, painless cervical ROM. LUNGS/CHEST: Lungs CTA bilaterally, non-labored respirations, normal A/P diameter, symmetrical expansion, no chest wall deformity HEART (CV/PV): Regular rate and rhythm without murmur, no peripheral edema, no JVD. ABDOMEN: Soft, non-distended, no guarding. MSK: Normal ROM, no swelling/deformity to bilateral UEs or LEs, moving all extremities without weakness, no cyanosis, spine midline without tenderness, normal curvature. NEURO: Mental Status AAOx4 - alert to person, place, time, events No facial droop, no forehead involvement. Motor: No focal weakness - strength 5/5 in bilateral UEs and LEs, proximal and distal, symmetric. Sensory: sensation intact to light touch globally. Gait normal: patient ambulated without ataxia into ED room. PSYCH: euthymic, cooperative, pleasant, appropriate speech Course Vital Signs Vital signs: Vital Signs Temperature 36.7 C 04/19/24 16:07 Pulse 110 H 04/19/24 16:07 Respiratory Rate 15 04/19/24 16:07 Blood Pressure 110/74 04/19/24 16:07 Pulse Oximetry 98 04/19/24 16:07 Temperature 36.7 C 04/19/24 16:07 Temperature Source Oral 04/19/24 16:07 Pulse 110 H 04/19/24 16:07 Respiratory Rate 15 04/19/24 16:07 Blood Pressure 110/74 04/19/24 16:07 Blood Pressure Position Sitting 04/19/24 16:07 Pulse Oximetry 98 04/19/24 16:07 Oxygen Delivery Method Room Air 04/19/24 16:07 Oxygen Flow Rate 0 04/19/24 16:07 Medical Decision Making This dictation utilizes [id number] dictation software and may contain unedited grammatical errors. [ ]. Patients' medical history: [ ]. Family and social history: [ ]. Pertinent exam findings / vital signs include [ ]. Differential / pathologies of concern include [ ]. Diagnostic studies of: -[ ]. Interventions of: -[ ]. ED Course/Assessment/Plan: [ ]. Findings not consistent with [ ]. Disposition of [ ]. Patient verbalized understanding of the plan and return to ED criteria and engaged in shared decision making. Medical Records Medical records reviewed: Yes I reviewed the patient's medical records. Quality:[facility] Health Related Social Needs: No Data to Display [facility] Social History Smoking/Tobacco Use Status: Never Smoking risk assessment performed?: Yes Alcohol Intake: never Drug use: Never Substance use type: does not use Housing: house Do you feel safe at home: Yes Do you feel safe in your relationship?: Yes
--- NOTE | 2024-04-19 16:15 | DI.RAD_ITS ---
Exam(s) XR WRIST RT COMPLETE EXAM: XR WRIST RT COMPLETE CLINICAL HISTORY: Right wrist pain. TECHNIQUE: 2D digital imaging was performed. COMPARISON: No exams were available for comparison FINDINGS: 3 views No evidence of acute fracture nor dislocation nor significant ulnar variance. Bone density normal. Scaphoid and scapholunate distance are normal. No abnormal soft tissue densities. No radiopaque for eign bodies. No osseous lesions. No erosions. IMPRESSION: No significant radiographic findings in the right wrist. DATA REPOSITORY: RADIATION DOSE DELIVERED:
--- NOTE | 2024-04-19 16:16 | ED.GENADUL_ITS ---
Discharge Plan Discharge Details Chief Complaint: Orthopedic Clinical Impression: Pain in right wrist Primary Care Provider: Romana Valdez ED Provider: Raj Arana [place] Meds and New Rx's Prescriptions: Continued hydroxyzine HCl 25 mg Tablet 75 mg PO TID PRN duloxetine 30 mg capsule,delayed release(DR/EC) 30 mg PO DAILY Patient Comments: TAKE 1 CAPSULE BY MOUTH ONCE DAILY, DO NOT CRUSH OR CHEW cholecalciferol (vitamin D3) 1,250 mcg (50,000 unit) capsule 50,000 unit PO ONCE Patient Comments: TAKE 1 CAPSULE BY MOUTH ONCE A WEEK WITH FOOD L norgest/e.estradiol-e.estrad [Ashlyna] 0.15 mg-30 mcg (84)/10 mcg (7) tablets,dose pack,3 month See Rx Instructions .ROUTE .COMPLEX Rx Instructions: take 1 tablet daily following the order on blister card(s) estradiol 1 mg tablet 1 mg PO DAILY Patient Comments: TAKE 1 TABLET BY MOUTH ONCE DAILY sumatriptan succinate 25 mg tablet 25 mg PO ONCE PRN Patient Comments: TAKE 1 TABLET BY MOUTH NEEDED FOR MIGRAINE INITIAL DOSE 25MG, 50MG, 100MG (TAKE WITH FLUIDS) MAY REPEAT DOSE AFTER 2 HOURS MAX DAILY DOSE 200MG PER DAY albuterol sulfate [Ventolin HFA] 90 mcg/actuation HFA aerosol inhaler 2 puff INHALATION Q4H PRN Patient Comments: INHALE 2 PUFFS BY MOUTH EVERY 4 HOURS NEEDED FOR WHEEZING Mag Glycinate 100 mg tablet 180 mg PO DAILY metoclopramide HCl [Reglan] 10 mg tablet 10 mg PO DAILY PRN (Reason: headache) Qty: 3 0RF Rx Instructions: administer 30 minutes before meals Discharge Instructions Additional Instructions: You are seen in the emergency department for your right wrist pain. Your x-ray showed no sign of any fractures. You may wear this sling as needed for comfort. As we discussed, please return to the emergency department if you develop streaking signs of infection fevers redness swelling or worsening pain. Please also return if your hand turns blue or you cannot move your hand. Please follow-up with orthopedic team at [facility] later this month. Please use this school excuse as needed to rest your right wrist as this may improve your symptoms. For your pain please take medications as follows: 1. Take acetaminophen (Tylenol), 1,000 mg (two 500 mg tabs) every 6 hours [2. Take ibuprofen (Advil), 400 mg every 6 hours.] Stand Alone Forms: School Release HPI General Date/Time Provider Initiated Documentation: 04/19/24 16:12 . HPI Narrative: MDM This is an overall very well-appearing [id number] 18-year-old mildly tachycardic but normothermic female with acute on chronic right wrist pain for which she will receive plain film. Based on her intact range of motion and minimal tenderness my suspicion for acute osseous abnormalities is exceedingly low. If x-rays are negative will place patient in sling and provide her with a school note as she reports that the brace exacerbated her symptoms. I considered carpal tunnel syndrome however patient had a negative Phalen's test and negative Tinel's sign. No pain or proportion to suggest necrotizing soft tissue infection. No history of thoracic rib to suggest thoracic outlet syndrome. No numbness or tingling in hand to suggest MS. Not an alcoholic to suggest B12 deficiency. No trauma to suggest brachial plexopathy. 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 No tick bites to suggest increased risk for erythema migrans and Lyme disease. No erythema to suggest cellulitis. No fluctuance to suggest zoster. Will sign patient out to Dr. Church pending plain films. Plain films are negative will write patient up for empiric trial of discharge with expectant outpatient management. I advised patient to follow-up with her orthopedic team at [facility] and she will likely benefit from reassessment with the possibility MRI as she certainly could have sustained ligamentous or tendinous injury. Will provide oral analgesia with acetaminophen and ibuprofen and ice. I advised patient return to the emergency department if she develop any weakness in any numbness tingling any color changes in her hand or any string signs of infection. She understood her return indications and if her x-ray is negative will be discharged with empiric trial of expectant outpatient management. Chronic conditions affecting the care of the patient: Elevated BMI History obtained from an outside historian: N/A External record review: N/A Medications: Acetaminophen ibuprofen Social determinants of health affecting disposition: N/A Management discussed with: Dr. Church Treatment/interventions considered: N/A Response to therapies provided: N/A HPI This is a 18-year-old [id number] female arrived to the emergency department via private vehicle in setting of right wrist pain. Patient notes that she has had right wrist pain for the past approximately 1 month. She says that she sprained it after falling. She has a history of vasovagal syncope and reports she lost consciousness and fell. She initially received x-rays and a brace. Brace exacerbated her symptoms so she discontinued this. She was injured at 2 subsequent times but only once received an x-ray. She follows with orthopedics at [facility]. She denies chance of a tick bite. She reports that she is due to follow-up at the end of the month. She denies IV drug use fevers chills nausea vomiting. No numbness or tingling in her right wrist. Exam General: Well-appearing in no acute distress speaking in complete sentences. Head: Normocephalic, atraumatic. Eye: Extraocular eye movements intact. No conjunctival injection. No scleral icterus. Ear, nose, mouth, throat: Grossly normal inspection. Normal voice, handling secretions normally. Neck: Trachea midline. Cardiovascular: Well-perfused distal extremities. Respiratory: Nonlabored respiration. Gastrointestinal: Nondistended abdomen. Musculoskeletal: Right upper extremity no signs of trauma. Nontender shoulder humerus elbow forearm. Right wrist tender on the ulnar and radial aspects. No deformities. Full range of motion right wrist. Sensation motor function intact in the right hand across the radial, median, and ulnar nerve distributions. 2+ radial pulse. Cap refill less than 2 seconds in the right fingertips. Skin: Normal for age and race, grossly normal temperature and turgor. No acute rash. Neurologic: Alert and appropriate, no apparent acute deficits. Psychiatric: Mood and manner are appropriate. Grooming and personal hygiene are appropriate. Related Data Home Medications ?Medication ?Instructions ?Recorded ?Confirmed hydroxyzine HCl 25 mg tablet 75 mg PO TID PRN 03/10/22 04/19/24 L norgest/E estradiol-E estrad See Rx Instructions PO .COMPLEX 06/11/23 04/19/24 0.15 mg-30 mcg (84)/10 mcg(7) tabs,3mos (Ashlyna) cholecalciferol (vitamin D3) 1,250 50,000 unit PO ONCE 06/11/23 04/19/24 mcg (50,000 unit) capsule duloxetine 30 mg capsule,delayed 30 mg PO DAILY 06/11/23 04/19/24 release estradiol 1 mg tablet 1 mg PO DAILY 06/11/23 04/19/24 albuterol sulfate 90 mcg/actuation 2 puff inhalation Q4H PRN 09/20/23 04/19/24 aerosol inhaler (Ventolin HFA) magnesium glycinate 100 mg (as 180 mg PO DAILY 09/20/23 04/19/24 glycinate) tablet (Mag Glycinate) metoclopramide HCl 10 mg tablet 10 mg PO DAILY PRN headache #3 tabs 09/20/23 04/19/24 (Reglan) sumatriptan succinate 25 mg tablet 25 mg PO ONCE PRN 09/20/23 04/19/24 Previous Rx's ?Medication ?Instructions ?Recorded metoclopramide HCl 10 mg tablet 10 mg PO DAILY PRN headache #3 tabs 09/20/23 (Reglan) Allergies Allergy/AdvReac Type Severity Reaction Status Date / Time metoclopramide (From Reglan) Allergy Severe Anaphylaxis Unverified 04/19/24 16:17 General Stated Complaint: Orthopedic KARLY: 4 Course Vital Signs Vital signs: Vital Signs Temperature 36.7 C 04/19/24 16:07 Pulse 110 H 04/19/24 16:07 Respiratory Rate 15 04/19/24 16:07 Blood Pressure 110/74 04/19/24 16:07 Pulse Oximetry 98 04/19/24 16:07 Temperature 36.7 C 04/19/24 16:07 Temperature Source Oral 04/19/24 16:07 Pulse 110 H 04/19/24 16:07 Respiratory Rate 15 04/19/24 16:07 Respiratory Effort Normal 04/19/24 16:12 Blood Pressure 110/74 04/19/24 16:07 Blood Pressure Position Sitting 04/19/24 16:07 Pulse Oximetry 98 04/19/24 16:07 Oxygen Delivery Method Room Air 04/19/24 16:07 Oxygen Flow Rate 0 04/19/24 16:07 Medical Decision Making Quality:SDOH Health Related Social Needs: No Data to Display PFSH All Active Problems (Updated 04/19/24 @ 16:26 by Raj Arana MD) Pain in right wrist (Acute) Social History Smoking/Tobacco Use Status: Never Smoking risk assessment performed?: Yes Alcohol Intake: never Drug use: Never Substance use type: does not use Housing: house Do you feel safe at home: Yes Do you feel safe in your relationship?: Yes
[2024-04-19] MEDS: Ibuprofen 600 MG TAB PO (16:25)
[2024-04-19] MEDS: Acetaminophen 500 MG TAB 1000 MG PO (16:25)
--- NOTE | 2024-04-19 18:01 | W.EDPROG ---
Date of service: 04/19/24 Time of Service: 17:00 Medical Decision Making In brief, this is a 18-year-old female patient presenting for evaluation of acute on chronic wrist pain, signed out to me pending x-ray imaging of her right wrist to evaluate for osseous injury. The x-ray was performed, the patient has no osseous injury to explain her symptoms. On reassessment, she remains neurovascularly intact. She was offered a sling and has declined, already has a thumb spica splint at home for comfort. She has an appointment scheduled with an orthopedic doctor for evaluation of this pain, and at this time, the patient has had a full medical evaluation and is safe for discharge to home. They are hemodynamically stable, ambulatory, and tolerating PO. They are understanding of the follow-up plan and return precautions. They left our facility without incident. Ida Church MD Quality:[facility] Health Related Social Needs: No Data to Display Sign Out Sign Out Data: Sign Out Comment: Please follow-up right wrist film and this 18-year-old airh-kiwz-otadnizu female with acute on chronic right wrist pain for which she has orthopedic follow-up at [facility] there is a month. She has been written for continued discharge instructions. Last updated by Raj Arana MD at 04/19/24 16:30 Discharge Plan Disposition Patient Disposition: Home Condition: Stable Discharge Details Clinical Impression: Pain in right wrist Primary Care Provider: Romana Valedz ED Provider: Ida Church Home Meds and New Rx's Prescriptions: Continued hydroxyzine HCl 25 mg Tablet 75 mg PO TID PRN duloxetine 30 mg capsule,delayed release(DR/EC) 30 mg PO DAILY Patient Comments: TAKE 1 CAPSULE BY MOUTH ONCE DAILY, DO NOT CRUSH OR CHEW cholecalciferol (vitamin D3) 1,250 mcg (50,000 unit) capsule 50,000 unit PO ONCE Patient Comments: TAKE 1 CAPSULE BY MOUTH ONCE A WEEK WITH FOOD L norgest/e.estradiol-e.estrad [Ashlyna] 0.15 mg-30 mcg (84)/10 mcg (7) tablets,dose pack,3 month See Rx Instructions .ROUTE .COMPLEX Rx Instructions: take 1 tablet daily following the order on blister card(s) estradiol 1 mg tablet 1 mg PO DAILY Patient Comments: TAKE 1 TABLET BY MOUTH ONCE DAILY sumatriptan succinate 25 mg tablet 25 mg PO ONCE PRN Patient Comments: TAKE 1 TABLET BY MOUTH NEEDED FOR MIGRAINE INITIAL DOSE 25MG, 50MG, 100MG (TAKE WITH FLUIDS) MAY REPEAT DOSE AFTER 2 HOURS MAX DAILY DOSE 200MG PER DAY albuterol sulfate [Ventolin HFA] 90 mcg/actuation HFA aerosol inhaler 2 puff INHALATION Q4H PRN Patient Comments: INHALE 2 PUFFS BY MOUTH EVERY 4 HOURS NEEDED FOR WHEEZING Mag Glycinate 100 mg tablet 180 mg PO DAILY metoclopramide HCl [Reglan] 10 mg tablet 10 mg PO DAILY PRN (Reason: headache) Qty: 3 0RF Rx Instructions: administer 30 minutes before meals Discharge Instructions Additional Instructions: You are seen in the emergency department for your right wrist pain. Your x-ray showed no sign of any fractures. You may wear this sling as needed for comfort. As we discussed, please return to the emergency department if you develop streaking signs of infection fevers redness swelling or worsening pain. Please also return if your hand turns blue or you cannot move your hand. Please follow-up with orthopedic team at [facility] later this month. Please use this school excuse as needed to rest your right wrist as this may improve your symptoms. For your pain please take medications as follows: 1. Take acetaminophen (Tylenol), 1,000 mg (two 500 mg tabs) every 6 hours [2. Take ibuprofen (Advil), 400 mg every 6 hours.] Stand Alone Forms: School Release Discharge Data Discharge Date/Time-TO BE ENTERED AT DEPARTURE: 04/19/24 18:08
== END 2024-04-19 18:08 | disposition home or self-care (01) ==
PROVIDERS: Emergency Provider Emergency Medicine; PCP Nurse Practitioner Family
DX: M25.531 Pain in right wrist (principal); W19.XXXA Unspecified fall, initial encounter
CPT/HCPCS: 00123; 99283; 73110

== ENCOUNTER 2025-01-16 00:55 | Outpatient (CLI) | payer MEDICAID, SELFPAY ==
--- NOTE | 2025-01-16 | DI.RAD_ITS ---
Exam(s) RF JOINT INJ. FLUORO GUID RAD EXAM: RF JOINT INJ. FLUORO GUID RAD CLINICAL HISTORY: Rt shoulder bicipital tendinitis, M75.21; Rt bicipital groove injection. The Keeley ent has had persistent right pain. Noninvasive measures have been tried. To serve as both diagnosti c and therapeutic, an injection under fluoroscopy was recommended. The risks of the procedure were d iscussed with their Orthopedic provider and the patient elected to proceed. TECHNIQUE: 2D and realtime digital imaging was performed. CONTRAST MATERIAL: Water soluble contrast was utilized. COMPARISON: No exams were available for comparison FINDINGS: The Patient was greeted in the fluoroscopy room. The correct side was identified and the consent was reviewed with the patient and was signed. The patient was properly positioned on the fluoroscopy ta ble. The right shoulderwas then prepped and draped. The right shoulder injection starting point was identified by the bony landmarks and fluoroscopy. The skin and soft tissue in the tract of the inje ction was anesthetized with 1% Bupivacaine. A spinal needle was then inserted into the right shoulde r joint at the level of the glenohumeral joint under fluoroscopic guidance. A small amount of Omnipa que solution was injected to confirm intraarticular placement. Once confirmed, the right shoulder wa s injected with 5cc of a solution containing 0.5% Bupivacaiine and 40 mg of Depo-Medrol. A bandaid w as placed on the injection site. The patient tolerated the procedure well and left the department in good condition. IMPRESSION: Successful right shoulder injection. RADIATION DOSE DELIVERED: Ka,r=5.77 mGy
[2025-01-16] MEDS: methylPREDNISolone ACETATE 40 MG/ML VIAL IM (10:26)
[2025-01-16] MEDS: Bupivacaine 0.5% Pres-Free 10 ML VIAL 50 ML IJ (10:29)
[2025-01-16] MEDS: Omnipaque 300 MG/ML 10 ML BTL IJ (10:30)
== END 2025-01-16 01:15 ==
LOC: DI 00:55
PROVIDERS: PCP Nurse Practitioner Family; Visit Provider Physician Assistant Surgical
DX: M75.21 Bicipital tendinitis, right shoulder (principal)
CPT/HCPCS: 20610; 77002; J0665; J1010